=== PATIENT | female | born 1995 | race African-American/Black ===

== ENCOUNTER 2024-09-16 15:51 | Emergency (ER) | payer OTHER, SELFPAY ==
--- NOTE | ~2024-09-16 | XR_ITS ---
EXAMINATION: XR toe 5th LT min 2V DATE: 09/16/2024 16:28 INDICATION: Pain and swelling at the left side of to post trauma TECHNIQUE: Dorsal plantar, lateral and 2 oblique views of the left fifth were obtained. COMPARISON: None FINDINGS: Alignment is normal. No fracture. Joint spaces are normal. Soft tissues are unremarkable. IMPRESSION: Normal left fifth toe radiographs. Reviewed, dictated and finalized at location A.
--- NOTE | 2024-09-16 16:11 | ED.LOWEXIN ---
HPI - Extremity Injury (Lower) General Chief Complaint: Extremity Injury, Lower Stated Complaint: INJURED TOE Time Seen by Provider: 09/16/24 16:50 Source: patient, RN notes reviewed and old records reviewed Mode of arrival: ambulatory Limitations: no limitations History of Present Illness HPI Narrative: 29 year old female who presents to [facility] care with complaints of injury to her left 5th toe which occurred last at work when she stubbed her toe on a table. Patient has some bruising, redness, and swelling to her left 5th toe with no obvious deformity noted. Patient reports that she has taken some Tylenol for her discomfort. MD complaint: other (toe) Onset (ago): day(s) (8) Injury: Left: toes (5th toe) Type of Injury: blunt Place: work Severity scale (1-10): 7 Treatments prior to arrival: other (Tylenol) Related Data Home Medications ?Medication ?Instructions ?Recorded ?Confirmed ?Last Taken ?Type No Home Medications 09/16/24 09/16/24 Unknown History Allergies Allergy/AdvReac Type Severity Reaction Status Date / Time No Known Allergies Allergy Verified 09/16/24 16:08 Review of Systems Review of Systems: CONSTITUTIONAL: Denies fever, chills, or sweats. EYES: Denies visual changes, redness, or discharge. ENT: Denies rhinorrhea, congestion, sore throat, or otalgia. CARDIOVASCULAR: Denies chest pain, palpitations, or edema. RESPIRATORY: Denies cough or dyspnea. GASTROINTESTINAL: Denies abdominal pain, nausea, vomiting, or diarrhea. GENITOURINARY: Denies dysuria or hematuria. SKIN: Denies rash or itching. MUSCULOSKELETAL: Denies back pain,positive for left 5th toe injury when she stubbed it last , or myalgia. NEUROLOGIC: Denies headache, numbness, or weakness. PSYCHIATRIC: Denies anxiety or depression. All systems reviewed & are unremarkable except as noted in HPI and below PMFSH Past Medical History Medical History (Updated 09/19/24 @ 09:08 by Rylee Schwartz NP) No pertinent past medical history Surgical History Surgical History (Updated 09/19/24 @ 09:05 by Rylee Schwartz NP) No history of previous surgery Comments At time of signature, agree with nursing past medical, surgical, social and family history. There is no relevant family history pertinent to the presenting complaint Exam Narrative: GENERAL: Well-appearing, well-nourished, and in no acute distress. HEAD: Normocephalic, atraumatic. EYES: PERRLA and EOMI. ENT: Nares clear, no rhinorrhea or epistaxis. Mucous membranes moist. NECK: Supple. no lymphadenopathy CHEST: Clear to auscultation. No respiratory distress. SAO2 100% on room air HEART: Regular rate and rhythm. No murmur heard. Normal peripheral pulses. ABDOMEN: Soft, nontender, nondistended, normal active bowel sounds. EXTREMITIES: Normal range of motion. No edema.Exception noted to the left 5th toe which is swollen, ecchymotic with some redness, movement is intact with increased pain. Patient denies any tingling or numbness to left 5th toe or her left foot with strong left pedal pulse. SKIN: Warm, dry, no rash. NEURO: No focal deficits. Alert and oriented x3. Course Course Emergency Course: Patient is aware of diagnosis, understands and agrees to treatment plan.? Anticipatory guidance given.? Patient agrees to follow-up as directed and is aware of reasons to seek care at the emergency department. Portions of this record may have been created with voice recognition software Level of Care: Express Care Visit Vital Signs Vital signs: Vital Signs Temperature 36.8 C 09/16/24 16:12 Pulse Rate 70 09/16/24 16:12 Respiratory Rate 16 09/16/24 16:12 Blood Pressure 146/89 H 09/16/24 16:12 Pulse Oximetry 100 09/16/24 16:12 Temperature 36.8 C 09/16/24 16:12 Pulse Rate 70 09/16/24 16:12 Respiratory Rate 16 09/16/24 16:12 Blood Pressure 146/89 H 09/16/24 16:12 Pulse Oximetry 100 09/16/24 16:12 Reviewed MDM - Extremity Injury (Lower) Differential Diagnosis Differential diagnosis: Likely fracture of toe and other ( contusion to left 5th toe, pain left 5th toe) Medical Records Attestation: I reviewed the patient's medical records. Imaging Data My impression: normal left fifth toe no fracture Radiologist's impression: [facility] [address] [place], [place] [id number] XRay Report Signed Patient: Shyanne Hammer : 1995 MR#: [id number] Age: 29 Acct:[id number] Loc: [facility] ADM Date: 09/16/24Attending Dr: Ordering Physician: Rylee Schwartz APRN Date of Service: 09/16/24 Procedure(s): XR toe 5th LT min 2V Accession Number(s): [id number] cc: LOOM CHANGEOVER OPERATOR PHYSICIAN; Rylee Schwartz APRN~ EXAMINATION: XR toe 5th LT min 2V DATE: 09/16/2024 16:28 INDICATION: Pain and swelling at the left side of to post trauma TECHNIQUE: Dorsal plantar, lateral and 2 oblique views of the left fifth were obtained. COMPARISON: None FINDINGS: Alignment is normal. No fracture. Joint spaces are normal. Soft tissues are unremarkable. IMPRESSION: Normal left fifth toe radiographs. Reviewed, dictated and finalized at location A. Please be advised this is a medical document. It is intended for [id number] communication. It is written in medical language and may contain unfamiliar abbreviations or verbiage. Medical documents are intended to carry relevant information, facts as evident, and the clinical opinion of the practitioner at the time of the encounter. This report may have been done utilizing a voice recognition system. Attempts have been made to correct errors. However, there may be uncorrected grammatical, spelling, and recognition errors present. The file time of this note does not necessarily represent the time of service. Dictated By: Emanuel Perales MD 09/16/24 1658 Signed By: <Electronically signed by Emanuel Perales MD in OV> Critical Care Time Critical Care Time Critical Care Time: No Discharge Plan Discharge Clinical Impression: Contusion of fifth toe of left foot Qualifiers: Encounter type: initial encounter Qualified Code(s): S90.122A - Contusion of left lesser toe(s) without damage to nail, initial encounter Patient Disposition: Home Condition: Stable Instructions: Foot Contusion (ED) Additional Instructions: Tylenol for lesser pain Ibuprofen regularly for the next 2-3 days for the inflammation Follow-up with orthopedic surgeon or podiatry if continued problems Follow-up with PCP if further problems or concerns Ice to the area 20-30 minutes 4-6 times a day Elevate above heart If your symptoms persist, change or worsen significantly before you can contact your personal physician then please, without delay, go to the emergency department for further evaluation. Follow-up with PCP in 7-10 days or sooner if needed Follow up with PCP soon in regards to your blood pressure which is elevated above threshold for referral. Blood pressure above 120/80 may indicate pre-hypertension. 146/89 Patient Language: Portuguese Prescriptions: No Action No Home Medications Follow-up/Referrals: PHYSICIAN,LOOM CHANGEOVER OPERATOR [Primary Care Provider] - Time of Disposition: 17:19 Quality C[place] Coma Scale Eyes: Open Verbal: Oriented and Alert Motor: Follows Commands Sharla Coma Total Score: 15
[2024-09-16 16:12] VITALS: BP 146/89; PULSE 70; RESP 16; TEMP 36.8; O2SAT 100
== END 2024-09-16 17:24 | disposition home or self-care (01) ==
PROVIDERS: Emergency Provider Registered Nurse
DX: S90.122A Contusion of left lesser toe(s) without damage to nail, initial encounter (principal); W22.8XXA Striking against or struck by other objects, initial encounter; Y99.0 Civilian activity done for income or pay
CPT/HCPCS: 73660; 99203; G0463

== ENCOUNTER 2024-12-02 09:21 | Emergency (ER) | payer SELFPAY ==
--- NOTE | ~2024-12-02 | XR_ITS ---
XR lumbar spine 2-3V 12/02/2024 09:54 Indication: Low back pain with sciatica Procedure: 3 views lumbar spine Comparison: No prior studies for comparison. Findings: Vertebral body heights are maintained. There is sacralization of L5. No acute fracture, sub luxation or dislocation. Normal lumbar lordosis. Transverse processes are normal. Pedicles intact. Sa cral foramen are symmetric. Impression: 1: No acute abnormality of the lumbar spine. Reviewed, dictated and finalized at location A. Impression: 1: No acute abnormality of the lumbar spine.
--- NOTE | ~2024-12-02 | XR_ITS ---
AP view of the pelvis and AP and lateral views of the bilateral hips Clinical history: Pain Findings: No acute fracture or dislocation is seen. Osseous alignment is anatomic. Bilateral hip and SI joint spaces are preserved. Soft tissues are unremarkable. Impression: No significant abnormality is seen. Reviewed, dictated and finalized at location . Impression: No significant abnormality is seen.
--- NOTE | 2024-12-02 09:23 | ED_ITS ---
HPI - Back Pain/Injury General Chief Complaint: Back Pain/Injury Stated Complaint: Back Pain Time Seen by Provider: 12/02/24 09:25 Source: patient Mode of arrival: ambulatory Limitations: no limitations History of Present Illness HPI Narrative: Shyanne is a 29 year old female patient presenting to the clinic today with c/o low back pain x 1 month. She reports pain is radiating down both legs worsen on the right side. No injury to her back. 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 Pain started and her back feeling tight. Pain is worse with movement. Pain is sharp, stabbing, and aching. Rates pain 5/6 when standing and 8-9 when moving initially but does improve and she continues to move. No urinary symptoms or vaginal discharge. No blood in her urine or abdomen pain. No concern for STI. LMP was 1.5 week. Last BM today- small amount. Denies any saddle anesthesia or loss of bowel or bladder. Related Data Allergies Allergy/AdvReac Type Severity Reaction Status Date / Time No Known Allergies Allergy Verified 12/02/24 09:30 Review of Systems Review of Systems: Pertinent positives per HPI. Patient denies any fever, chills, rash, headache, visual changes, dizziness, cough, runny nose, sore throat, shortness of breath, chest pain, palpitations, nausea, vomiting, diarrhea, constipation, abdominal pain, or any urinary issues. [facility] Past Medical History Medical History No pertinent past medical history Surgical History Surgical History No history of previous surgery Comments At the time of my signature, I reviewed and agree with the nursing past medical, surgical, social, and family history. There is no relevant family history pertinent to the patient complaint. Exam Narrative: General: Well-developed, well nourished, in no apparent distress Head: Normocephalic, atraumatic. Cardio: Regular rate and rhythm, s1 and s2 normal, no murmur appreciated. Resp: Clear to auscultation bilaterally, no rhonchi, rales, wheezing or rubs. Musculoskeletal: No deformity, tender to palpation over the LS spine and paraspinous musculature/ pain over bilateral si joints, grossly normal range of motion, muscle strength strong and equal in BLE. SLT positive at 30 degree bilaterally, patellar reflexes 2/4 bilaterally, negative foot drop, cautious gait and station Course Course Emergency Course: Portions of this record may have been created with voice recognition software. Level of Care: Express Care Visit Vital Signs Vital signs: Vital Signs Temperature 36.6 C 12/02/24 09:27 Pulse Rate 74 12/02/24 09:27 Respiratory Rate 16 12/02/24 09:27 Blood Pressure 140/88 12/02/24 09:27 Pulse Oximetry 100 12/02/24 09:27 Temperature 36.6 C 12/02/24 09:27 Pulse Rate 74 12/02/24 09:27 Respiratory Rate 16 12/02/24 09:27 Blood Pressure 140/88 12/02/24 09:27 Pulse Oximetry 100 12/02/24 09:27 Vital signs reviewed MDM - Back Pain/Injury MDM Narrative Medical decision making narrative: At the time of visit patient is resting comfortably on the exam table. Patient appears to be nontoxic. c/o low back pain x 1 month. Radiating down both legs worsen on the right side. No injury to her back. 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 Pain started and her back feeling tight. Pain is worse with movement. Pain is sharp, stabbing, and aching. Rates pain 5/6 when standing and 8-9 when moving initially but does improve and she continues to move. No urinary symptoms or vaginal discharge. No blood in her urine or abdomen pain. No concern for STI. LMP was 1.5 week. History of tubal ligation. Last BM today- small amount. Denies any saddle anesthesia or loss of bowel or bladder. No history of arthritis or scoliosis. On physical exam she has positive bilateral SLT at approx 30 degrees, pain to palpation over the right and left si joints and paraspinous musculature- right worse than left. X-ray of LS spine and bilateral hips ordered. Diagnostics: X-ray of the bilateral hips and lumbar spine were performed. X- rays are negative for any acute fracture or malalignment. Plan: I suspect patient has lumbar radiculopathy with sciatica. Prescription for Medrol Dosepak and Flexeril was sent to the pharmacy. Sedation precautions were reviewed. Work note was given. Supportive measures were discussed with the patient and they voiced understanding discharge instructions and agrees to treatment plan. Return precautions reviewed Differential Diagnosis Differential diagnosis: Likely lumbar radiculopathy, sciatica, strain of lumbar region, renal colic and pyelonephritis Imaging Data Radiologist's impression: ITS Impressions Hip/Pelvis X-Ray 12/02/24 10:01 Impression: No significant abnormality is seen. Lumbar Spine X-Ray 12/02/24 10:01 Impression: 1: No acute abnormality of the lumbar spine. Discharge Plan Discharge Clinical Impression: Lumbar radiculopathy Sciatica Qualifiers: Laterality: bilateral Qualified Code(s): M54.31 - Sciatica, right side Patient Disposition: Home Condition: Stable Instructions: Antibiotic Form, Sciatica (ED), Acute Low Back Pain (ED) Additional Instructions: Take any prescription medication only as prescribed-Medrol Dosepak and cyclobenzaprine Be mindful of sedation precautions given to you if taking a muscle relaxer. May use heat or ice to the affected area May take [id number] stool softener as discussed Consider massage or chiropractor adjustment if this was discussed with provider May use blue emu, lidocaine patches, or asper cream to affected area- do not apply heat or ice directly over cream- can cause burn. Complete appropriate back stretching exercises. Follow up with your PCP in 3-5 days if symptom persist. Patient Language: Czech Prescriptions: New methylprednisolone [Medrol (Carlos)] 4 mg tablets,dose pack See Rx Instructions PO .COMPLEX Qty: 21 0RF Rx Instructions: orally per package directions cyclobenzaprine 10 mg tablet 10 mg PO Q8H PRN (Reason: muscle spasm) 7 Days Qty: 21 0RF Follow-up/Referrals: PHYSICIAN,SALES REPRESENTATIVE [employer] [Primary Care Provider] - Stand Alone Forms: Work/School Release IP Time of Disposition: 10:04 Quality NIHSS Nursing Documentation ED NIHSS nursing documentation: reviewed/agree
[2024-12-02 09:27] VITALS: BP 140/88; PULSE 74; RESP 16; TEMP 36.6; O2SAT 100
[2024-12-02] MEDS: KETOROLAC (*BKC) 60 MG/2 ML VIAL IM (09:55)
== END 2024-12-02 10:14 | disposition home or self-care (01) ==
PROVIDERS: Emergency Provider Nurse Practitioner Family
DX: M54.16 Radiculopathy, lumbar region (principal); M54.31 Sciatica, right side
CPT/HCPCS: 72100; 73521; 96372; 99214; G0463; J1885

== ENCOUNTER 2024-12-19 16:07 | Emergency (ER) | payer SELFPAY ==
--- NOTE | 2024-12-19 16:10 | ED_ITS ---
HPI - Back Pain/Injury General Chief Complaint: Back Pain/Injury Stated Complaint: Lower Back Pain Time Seen by Provider: 12/19/24 16:14 Source: patient, RN notes reviewed and old records reviewed Mode of arrival: ambulatory Limitations: no limitations History of Present Illness HPI Narrative: 29-year-old female presents to the [facility] with continued low back pain radiating down her legs. Was seen on December 02, 17 days ago. At that time was prescribed a muscle relaxer and a steroid. Denies any change in symptoms after completing medications. X-rays showed no acute findings Patient states that she has tried getting in with primary care provider but cannot get in until May pain Onset (ago): day(s) (17) Related Data Allergies Allergy/AdvReac Type Severity Reaction Status Date / Time No Known Allergies Allergy Verified 12/19/24 16:12 Review of Systems 2 Review of Systems: All systems reviewed & are unremarkable except as noted in HPI and below Constitutional: Constitutional: Reports no additional constitutional complaints ENT: Reports system reviewed and no additional complaints, except as documented Cardiovascular: Cardiovascular: Reports no additional cardiovascular complaints, Denies chest pain and Denies dyspnea Respiratory: Respiratory: Reports no additional respiratory complaints, Denies chest congestion, Denies cough and Denies dyspnea Gastrointestinal: Gastrointestinal: Reports no additional gastrointestinal complaints Musculoskeletal: Musculoskeletal: Reports as per HPI Integumentary/Breasts: Skin/Breast: Reports system reviewed and no additional complaints, except as docu PMFSH Past Medical History Medical History No pertinent past medical history Surgical History Surgical History No history of previous surgery Comments At the time of my signature, I reviewed and agree with the nursing past medical, surgical, social, and family history. There is no relevant family history pertinent to the patient complaint. Exam 2 Const: General: cooperative, healthy appearing, comfortable, no acute distress, well developed, alert and well nourished Nutritional Appearance: w ell nourished Orientation/consciousness: patient oriented x3 Limitations: no limitations HENMT: Head: normal to inspection Eyes: General: appearance normal, both eyes and all related structures A lignment and Position: alignment normal Neck: Neck: normal visual inspection, full ROM, no lymphadenopathy and no meningeal signs Chest: Chest palpation & inspection: normal inspection of the chest Resp: Effort & Inspection: normal respiratory effort and able to speak in complete sentences Cardio: Rate: regular rate GI: GI Palp: No abdominal tenderness : General: Yes no CVA tenderness Back/Spine/Pelvis: Back: no CVA tenderness and back tenderness (Low lumbar) Back/spine/pelvis image: 1. Reports tenderness without loss retention of bowel or bladder. No erythema, no ecchymosis. No rashes noted. Skin: General skin exam: normal color and no rashes or lesions noted Neuro: General: patient oriented x3, gait normal, moves all extremities and no meningeal signs Cognition (Neuro): normal cognition Speech: normal speech Gait exam (Neuro): Normal gait present Extrem: General: normal to inspection, full ROM, capillary refill normal and normal gait Psych: Appearance: grossly normal and well kempt Mental Status: mental status grossly normal Speech and movement: Normal speech and movement present and Clear speech present Affect: normal affect Attitude: cooperative Course Course Level of Care: Express Care Visit Vital Signs Vital signs: Vital Signs Temperature 97.3 F L 12/19/24 16:17 Pulse Rate 65 12/19/24 16:17 Respiratory Rate 16 12/19/24 16:17 Blood Pressure 152/107 H 12/19/24 16:17 Pulse Oximetry 100 12/19/24 16:17 Temperature 97.3 F L 12/19/24 16:17 Pulse Rate 65 12/19/24 16:17 Respiratory Rate 16 12/19/24 16:17 Blood Pressure 152/107 H 12/19/24 16:17 Pulse Oximetry 100 12/19/24 16:17 Reviewed MDM - Back Pain/Injury MDM Narrative Medical decision making narrative: Patient sitting in exam room. Patient is nontoxic, vitals are stable except blood pressure mildly elevated. Likely due to pain. Patient presents with low back pain Patient had been seen 17 days ago for the same Patient unable to follow-up primary care provider Discussed patient that we are limited on the capabilities of this clinic, x-rays were negative at that time. Additional information on insurance, primary care providers given to patient Patient appropriate for outpatient treatment with close follow-up Discharge instructions reviewed with patient, as well as provided in writing per nursing staff. The instructions also include specific and strict return/GO TO THE ER as well as f/u information. All questions have been answered, and the patient deny any further questions with discharge and discharge plan. Some parts of this dictation were generated by voice recognition software and may contain typographical and/or grammatical inaccuracies. Differential Diagnosis Differential diagnosis: Likely lumbar radiculopathy, sciatica, strain of lumbar region and pyelonephritis Critical Care Time Critical Care Time Critical Care Time: No Discharge Plan Discharge Clinical Impression: Lumbar radiculopathy Patient Disposition: Home Condition: Stable Instructions: Back Pain (ED), Lower Back Exercises (ED) Additional Instructions: Today your blood pressure was 152/107. Please follow-up with primary care provider Take ibuprofen as directed to decrease inflammation and to help pain. Take Baclofen (muscle relaxer) as directed. Do not drink, drive, operate machinery, or do anything dangerous while taking this medication Exercise:Combine aerobic exercise, like walking or swimming, with specific exercises to keep the muscles in your back and abdomen strong and flexible. Proper Lifting:Be sure to lift heavy items with your legs, not your back. Do not bend over to pick something up. Keep your back straight and bend at your knees. Weight:Maintain a healthy weight. Being overweight puts added stress on your lower back. Avoid Smoking:Both the smoke and the nicotine cause your spine to age faster than normal. Proper Posture:Good posture is important for avoiding future problems. A therapist can teach you how to safely stand, sit, and lift. Use warm moist heat to help with pain. Using topical such as Biofreeze, Obed-Vargas or Aspercreme can also help Follow up with Primary provider in 2-3 days, This may become a chronic condition and they will be the one to help manage your pain and order additional testing. Go to the nearest ER if you develop problems with bladder/bowel function, weakness or loss of feeling in one or both of your legs. Patient Language: Ecuadorean Prescriptions: New baclofen 10 mg tablet 10 mg PO TID PRN (Reason: muscle pain) Qty: 15 0RF ibuprofen 600 mg tablet 600 mg PO TID PRN (Reason: fever or pain) Qty: 30 0RF Follow-up/Referrals: PHYSICIAN,ADMINISTRATIVE ANALYST [Primary Care Provider, Internal Medicine] Henry Servin MD [Physician, Family Practice] - 3 Days Stand Alone Forms: Work/School Release IP Time of Disposition: 16:30
[2024-12-19 16:17] VITALS: BP 152/107; PULSE 65; RESP 16; TEMP 36.3; O2SAT 100
== END 2024-12-19 16:35 | disposition home or self-care (01) ==
PROVIDERS: Emergency Provider Nurse Practitioner
DX: M54.16 Radiculopathy, lumbar region (principal)
CPT/HCPCS: 99213; G0463